=== PATIENT | female | born 1995 | race Caucasian/White ===

== ENCOUNTER 2019-02-04 21:50 | Emergency (ER) | payer MEDICAID ==
[2019-02-04] MEDS ORDERED: Doxycycline 100 MG Tab PO ONE (21:51)
[2019-02-04] MEDS ORDERED: Lidocaine 2% 20 ML MDV INFILT ONE (21:51)
--- NOTE | 2019-02-05 03:51 | ER ---
DATE SEEN: 02/04/2019 CHIEF COMPLAINT: A boil. HISTORY OF PRESENT ILLNESS: This is a 23-year-old who presents with a boil in the perineum. It has been there for a year, but on and off, it flares up. Moderate pain when she sits down. No fever. ALLERGIES: Amoxicillin and sulfa. REVIEW OF SYSTEMS: All other systems were negative. PHYSICAL EXAMINATION: VITAL SIGNS: Blood pressure and temperature within normal limits. RECTAL: Reveals a lesion above the anal opening that is tender, fluctuant, and fixed. IMPRESSION: Furuncle. PLAN: I discussed incision and drainage. She accepted the risks and benefits. I prepped the area with a trombone slide assembler and injected about 1 mL of 2% lidocaine. I made a small incision about a centimeter in size and expressed blood and some cheesy material. I recommended sitz baths, and a prescription for 100 mg of doxycycline twice a day was dispensed. She is advised to return p.r.n. /[id number] SARAH/PIPPA
== END 2019-02-04 22:40 | disposition home or self-care (01) ==
LOC: FB.ED 21:50
DX: L02.225 Furuncle of perineum (principal); Z88.1 Allergy status to other antibiotic agents; Z88.2 Allergy status to sulfonamides
CPT/HCPCS: 10060; 99282; A9270; J2001

== ENCOUNTER 2019-06-14 17:12 | Emergency (ER) | payer MEDICAID ==
[2019-06-14] MEDS ORDERED: Ibuprofen 800 MG Tab PO ONE (17:56)
[2019-06-14] MEDS ORDERED: Acetaminophen 500 MG Tab PO ONE (17:57)
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
== END 2019-06-14 19:05 | disposition home or self-care (01) ==
LOC: FB.ED 17:12
DX: S29.9XXA Unspecified injury of thorax, initial encounter (principal); Z88.1 Allergy status to other antibiotic agents; Z88.2 Allergy status to sulfonamides; Z88.8 Allergy status to other drugs, medicaments and biological substances; Y04.2XXA Assault by strike against or bumped into by another person, initial encounter
CPT/HCPCS: 71101-RT; 99283-25; A9270-GY

== ENCOUNTER 2019-09-05 23:11 | Emergency (ER) | payer MEDICAID ==
[2019-09-05] MEDS ORDERED: Ketorolac 60 MG/2 ML SDV IM ONE (23:42)
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
== END 2019-09-06 00:15 | disposition home or self-care (01) ==
LOC: FB.ED 23:11
DX: M79.89 Other specified soft tissue disorders (principal); M79.662 Pain in left lower leg; F41.9 Anxiety disorder, unspecified; F32.9 Major depressive disorder, single episode, unspecified; Z79.899 Other long term (current) drug therapy; Z88.1 Allergy status to other antibiotic agents; Z88.2 Allergy status to sulfonamides; Z87.891 Personal history of nicotine dependence; W22.8XXA Striking against or struck by other objects, initial encounter; Y93.23 Activity, snow (alpine) (downhill) skiing, snowboarding, sledding, tobogganing and snow tubing
CPT/HCPCS: 96372; 99283; J1885

== ENCOUNTER 2021-02-20 13:37 | Emergency (ER) | payer MEDICAID ==
[2021-02-20] MEDS ORDERED: LORazepam 2 MG/ML SDV IVPUSH STA (13:42)
[2021-02-20] MEDS ORDERED: Ondansetron 4 MG/2 ML SDV IVPUSH STA (13:42)
[2021-02-20] MEDS ORDERED: Sodium Chloride 0.9% 10 ML Syringe FLUSH PRN (13:42)
[2021-02-20] MEDS ORDERED: Sodium Chloride 0.9% 1,000 ML IV SCH (13:45)
[2021-02-20] MEDS ORDERED: Methadone 10 MG Tab PO STA (13:59)
[2021-02-20] MEDS ORDERED: Ketorolac 30 MG/ML SDV IVPUSH ONE (13:59)
--- NOTE | 2021-02-20 14:35 | EDM.PDOC ---
ED HPI GENERAL MEDICAL PROBLEM - General Time Seen by Provider: 02/20/21 14:00 Source of Information: Reports: Patient History Limitations: Reports: No Limitations - History of Present Illness INITIAL COMMENTS - FREE TEXT/NARRATIVE: Patient presented to the ED with law enforcement because of opioid withdrawal symptoms. She abuse fentanyl for 1 year now. She usually take 10-20 of a 30 mg tablet fentanyl daily. Her last pill intake was 8 pm last night. She started to have withdrawal symptoms of nausea,vomiting, diarrhea, pain, anxiety at 2 pm today. Generalized Pain Score (Numeric/FACES): 7 - Related Data Allergies Allergy/AdvReac Type Severity Reaction Status Date / Time amoxicillin Allergy Hives Verified 02/20/21 15:24 sulfamethoxazole Allergy Anaphylactic Verified 02/20/21 15:24 [From Bactrim] Shock trimethoprim [From Bactrim] Allergy Anaphylactic Verified 02/20/21 15:24 Shock Home Meds: Home Meds ALPRAZolam [Xanax] 2 mg PO ASDIRECTED PRN 02/20/21 [History] Past Medical History - Past Health History Medical/Surgical History: Denies Medical/Surgical History Respiratory History: Reports: None Gastrointestinal History: Reports: None Genitourinary History: Reports: None 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 Musculoskeletal History: Reports: None Neurological History: Reports: None Psychiatric History: Reports: Anxiety, Depression Endocrine/Metabolic History: Reports: None Dermatologic History: Reports: None Social & Family History - Family History Family Medical History: No Pertinent Family History - Caffeine Use Caffeine Use: Reports: Coffee Caffeine Use Comment: Drinks coffee daily ED ROS GENERAL - Review of Systems Review Of Systems: See Below Constitutional: Reports: No Symptoms HEENT: Reports: No Symptoms Respiratory: Reports: No Symptoms Cardiovascular: Reports: No Symptoms Endocrine: Reports: No Symptoms GI/Abdominal: Reports: Diarrhea, Nausea, Vomiting : Reports: No Symptoms Musculoskeletal: Reports: No Symptoms Skin: Reports: No Symptoms Neurological: Reports: No Symptoms Psychiatric: Reports: Anxiety Hematologic/Lymphatic: Reports: No Symptoms Immunologic: Reports: No Symptoms ED EXAM, GENERAL - Physical Exam Exam: See Below Exam Limited By: No Limitations General Appearance: Alert, No Apparent Distress Eye Exam: Bilateral Eye: PERRL Ears: Normal External Exam, Normal Canal Nose: Normal Inspection, Normal Mucosa, No Blood Throat/Mouth: Normal Inspection, Normal Lips, Normal Teeth Head: Atraumatic, Normocephalic Neck: Normal Inspection, Supple, Non-Tender, Full Range of Motion Respiratory/Chest: No Respiratory Distress, Lungs Clear, Normal Breath Sounds Cardiovascular: Normal Peripheral Pulses, Regular Rate, Rhythm, No Edema, No Gallop, No JVD, No Murmur, No Rub GI/Abdominal: Normal Bowel Sounds, Soft, Non-Tender, No Organomegaly, No Distention, No Abnormal Bruit Back Exam: Normal Inspection, Full Range of Motion Extremities: Normal Inspection, Normal Range of Motion, Non-Tender, No Pedal Edema, Normal Capillary Refill Neurological: Alert, Oriented, CN II-XII Intact, Normal Cognition Psychiatric: Anxious, Depressed Mood, Flat Affect Course - Vital Signs Text/Narrative:: Lab result was reviewed and discussed with patient NS 1 L bolus Zofran 4 mg IV x1 and Q4H PRN Reglan 10 mg IV Q8H Methadone 20 mg PO x1 Toradol 30 mg IV x1 Ativan 1 mg IV x1 Clonidine 0.2 mg PO x 1 Covid test-pending Last Recorded V/S: Last Vital Signs Temp 36.9 C 02/20/21 13:37 Pulse 75 02/20/21 13:37 Resp 27 H 02/20/21 13:37 BP 148/85 H 02/20/21 17:13 Pulse Ox 96 02/20/21 13:37 - Orders/Labs/Meds Orders: Active Orders 24 hr Category Date Time Status Metoclopramide [Reglan] Med 02/20/21 17:15 Active 10 mg IVPUSH Q8H Ondansetron [Zofran] Med 02/20/21 17:15 Active 4 mg IVPUSH Q4H PRN Sodium Chloride 0.9% [Normal Saline] 1,000 ml Med 02/20/21 13:45 Active IV ASDIRECTED Sodium Chloride 0.9% [Normal Saline] 2,000 ml Med 02/20/21 17:30 Active IV ASDIRECTED Sodium Chloride 0.9% [Saline Flush] Med 02/20/21 13:42 Active 10 ml FLUSH ASDIRECTED PRN Saline Lock Insert [OM.PC] Routine Oth 02/20/21 13:42 Ordered Medication Orders Sodium Chloride (Normal Saline) 1,000 mls @ 999 mls/hr IV ASDIRECTED [facility] Last Admin: 02/20/21 13:55 Dose: 999 mls/hr Documented by: REMINGTON Sodium Chloride (Normal Saline) 2,000 mls @ 125 mls/hr IV ASDIRECTED [facility] Last Admin: 02/20/21 17:30 Dose: 125 mls/hr Documented by: REMINGTON Metoclopramide HCl (Metoclopramide 10 Mg/2 Ml Sdv) 10 mg IVPUSH Q8H [facility] Last Admin: 02/20/21 17:13 Dose: 10 mg Documented by: REMINGTON Ondansetron HCl (Ondansetron 4 Mg/2 Ml Sdv) 4 mg IVPUSH Q4H PRN PRN Reason: Nausea Sodium Chloride (Sodium Chloride 0.9% 10 Ml Syringe) 10 ml FLUSH ASDIRECTED PRN PRN Reason: Keep Vein Open Labs: Laboratory Tests 02/20/21 02/20/21 02/20/21 Range/Units 13:55 13:55 13:55 WBC 9.7 (3.0-10.3) x10-3/uL RBC 4.92 (3.60-5.20) x10(6)uL Hgb 14.3 (11.4-15.5) g/dL Hct 42.4 (34.2-48.2) % MCV 86.3 (76.7-100.5) fL MCH 29.1 (23.9-33.9) pg MCHC 33.8 (31.9-34.8) g/dL RDW 13.4 (12.3-16.5) % Plt Count 257 (151-488) x10(3)uL MPV 9.4 (7.1-12.4) fL Add Manual Diff Yes Neutrophils % (Manual) 87 H (46-82) % Lymphocytes % (Manual) 11 L (13-37) % Monocytes % (Manual) 2 L (4-12) % Sodium 142 (135-145) mmol/L Potassium 4.0 (3.5-5.3) mmol/L Chloride 105 (100-110) mmol/L Carbon Dioxide 23 (21-32) mmol/L BUN 17 (7-18) mg/dL Creatinine 0.8 (0.55-1.02) mg/dL Est Cr Clr Drug Dosing TNP Estimated GFR (MDRD) > 60 (>60) BUN/Creatinine Ratio 21.3 H (9-20) Glucose 111 (80-116) mg/dL Calcium 9.5 (8.6-10.2) mg/dL Total Bilirubin 0.7 (0.1-1.3) mg/dL AST 12 (5-25) IU/L ALT 20 (12-36) U/L Alkaline Phosphatase 66 (56-112) IU/L Total Protein 7.7 (6.0-8.0) g/dL Albumin 4.3 (3.5-5.2) g/dL Globulin 3.4 g/dL Albumin/Globulin Ratio 1.3 Urine Opiates Screen (NEGATIVE) Ur Buprenorphine Scrn (NEGATIVE) Ur Oxycodone Screen (NEGATIVE) Urine Methadone Screen (NEGATIVE) Ur Propoxyphene Screen (NEGATIVE) Ur Barbiturates Screen (NEGATIVE) Ur Tricyclics Screen (NEGATIVE) Ur Phencyclidine Scrn (NEGATIVE) Ur Amphetamine Screen (NEGATIVE) U Methamphetamines Scrn (NEGATIVE) U Benzodiazepines Scrn (NEGATIVE) U Cocaine Metab Screen (NEGATIVE) U Marijuana (THC) Screen (NEGATIVE) Ethyl Alcohol < 0.03 (<0.03) % SARS-CoV-2 RNA ([facility]YLOR) (NEGATIVE) 02/20/21 02/20/21 Range/Units 15:20 15:20 WBC (3.0-10.3) x10-3/uL RBC (3.60-5.20) x10(6)uL Hgb (11.4-15.5) g/dL Hct (34.2-48.2) % MCV (76.7-100.5) fL MCH (23.9-33.9) pg MCHC (31.9-34.8) g/dL RDW (12.3-16.5) % Plt Count (151-488) x10(3)uL MPV (7.1-12.4) fL Add Manual Diff Neutrophils % (Manual) (46-82) % Lymphocytes % (Manual) (13-37) % Monocytes % (Manual) (4-12) % Sodium (135-145) mmol/L Potassium (3.5-5.3) mmol/L Chloride (100-110) mmol/L Carbon Dioxide (21-32) mmol/L BUN (7-18) mg/dL Creatinine (0.55-1.02) mg/dL Est Cr Clr Drug Dosing Estimated GFR (MDRD) (>60) BUN/Creatinine Ratio (9-20) Glucose (80-116) mg/dL Calcium (8.6-10.2) mg/dL Total Bilirubin (0.1-1.3) mg/dL AST (5-25) IU/L ALT (12-36) U/L Alkaline Phosphatase (56-112) IU/L Total Protein (6.0-8.0) g/dL Albumin (3.5-5.2) g/dL Globulin g/dL Albumin/Globulin Ratio Urine Opiates Screen Negative (NEGATIVE) Ur Buprenorphine Scrn Negative (NEGATIVE) Ur Oxycodone Screen Negative (NEGATIVE) Urine Methadone Screen Negative (NEGATIVE) Ur Propoxyphene Screen Negative (NEGATIVE) Ur Barbiturates Screen Negative (NEGATIVE) Ur Tricyclics Screen Negative (NEGATIVE) Ur Phencyclidine Scrn Negative (NEGATIVE) Ur Amphetamine Screen Negative (NEGATIVE) U Methamphetamines Scrn Negative (NEGATIVE) U Benzodiazepines Scrn Negative (NEGATIVE) U Cocaine Metab Screen Negative (NEGATIVE) U Marijuana (THC) Screen Positive H (NEGATIVE) Ethyl Alcohol (<0.03) % SARS-CoV-2 RNA (TA[place]OR) Negative (NEGATIVE) Meds: Medications Generic Name Dose Route Start Last Admin Trade Name Freq PRN Reason Stop Dose Admin Sodium Chloride 1,000 mls @ 999 mls/hr 02/20/21 13:45 02/20/21 13:55 Normal Saline IV 999 mls/hr ASDIRECTED ABHIJIT Administration Sodium Chloride 2,000 mls @ 125 mls/hr 02/20/21 17:30 02/20/21 17:30 Normal Saline IV 125 mls/hr ASDIRECTED ABHIJIT Administration Metoclopramide HCl 10 mg 02/20/21 17:15 02/20/21 17:13 Metoclopramide 10 Mg/2 Ml Sdv IVPUSH 10 mg Q8H ABHIJIT Administration Ondansetron HCl 4 mg 02/20/21 17:15 Ondansetron 4 Mg/2 Ml Sdv IVPUSH Q4H PRN Nausea Sodium Chloride 10 ml 02/20/21 13:42 Sodium Chloride 0.9% 10 Ml Syringe FLUSH ASDIRECTED PRN Keep Vein Open Discontinued Medications Generic Name Dose Route Start Last Admin Trade Name Freq PRN Reason Stop Dose Admin Clonidine HCl 0.2 mg 02/20/21 17:07 02/20/21 17:13 Clonidine 0.1 Mg Tab PO 02/20/21 17:08 0.2 mg NOW STA Administration Hydroxyzine HCl 100 mg 02/20/21 15:57 02/20/21 16:03 Hydroxyzine Hcl 50 Mg/Ml Sdv IM 02/20/21 15:58 100 mg NOW STA Administration Ketorolac Tromethamine 30 mg 02/20/21 13:59 02/20/21 14:20 Ketorolac 30 Mg/Ml Sdv IVPUSH 02/20/21 14:00 30 mg ONETIME ONE Administration Lorazepam 1 mg 02/20/21 13:42 02/20/21 14:21 Lorazepam 2 Mg/Ml Sdv IVPUSH 02/20/21 13:43 1 mg NOW STA Administration Methadone HCl 20 mg 02/20/21 13:59 02/20/21 14:20 Methadone 10 Mg Tab PO 02/20/21 14:00 20 mg NOW STA Administration Nicotine 21 mg 02/20/21 17:02 02/20/21 17:17 Nicotine 21 Mg/24 Hr Patch TRDERM 02/20/21 17:03 21 mg ONETIME ONE Administration Ondansetron HCl 4 mg 02/20/21 13:42 02/20/21 14:20 Ondansetron 4 Mg/2 Ml Sdv IVPUSH 02/20/21 13:43 4 mg NOW STA Administration Ondansetron HCl 4 mg 02/20/21 15:50 02/20/21 16:02 Ondansetron 4 Mg/2 Ml Sdv IVPUSH 02/20/21 15:51 4 mg ONETIME ONE Administration Ondansetron HCl 4 mg 02/20/21 17:15 02/20/21 17:14 Ondansetron 4 Mg/2 Ml Sdv IVPUSH 4 mg Q4H ABHIJIT Administration Departure - Departure Time of Disposition: 15:00 Disposition: DC/Tfer to Inpt Rehab Fac 62 Condition: Good Clinical Impression: Opioid withdrawal, Opioid abuse - Discharge Information Instructions: Chemical Dependency Referrals: PCP,None [Primary Care Provider] - Sepsis Event Note (ED) - Focused Exam Vital Signs: Vital Signs Temp Pulse Resp BP BP Pulse Ox 02/20/21 17:13 148/85 H 02/20/21 13:37 36.9 C 75 27 H 152/76 H 96 - My Orders Last 24 Hours: My Active Orders 02/20/21 13:42 Sodium Chloride 0.9% [Saline Flush] 10 ml FLUSH ASDIRECTED PRN Saline Lock Insert [OM.PC] Routine 02/20/21 13:45 Sodium Chloride 0.9% [Normal Saline] 1,000 ml IV ASDIRECTED 02/20/21 17:15 Metoclopramide [Reglan] 10 mg IVPUSH Q8H Ondansetron [Zofran] 4 mg IVPUSH Q4H PRN 02/20/21 17:30 Sodium Chloride 0.9% [Normal Saline] 2,000 ml IV ASDIRECTED - Assessment/Plan Last 24 Hours: My Active Orders 02/20/21 13:42 Sodium Chloride 0.9% [Saline Flush] 10 ml FLUSH ASDIRECTED PRN Saline Lock Insert [OM.PC] Routine 02/20/21 13:45 Sodium Chloride 0.9% [Normal Saline] 1,000 ml IV ASDIRECTED 02/20/21 17:15 Metoclopramide [Reglan] 10 mg IVPUSH Q8H Ondansetron [Zofran] 4 mg IVPUSH Q4H PRN 02/20/21 17:30 Sodium Chloride 0.9% [Normal Saline] 2,000 ml IV ASDIRECTED
[2021-02-20] MEDS ORDERED: Ondansetron 4 MG/2 ML SDV IVPUSH ONE (15:50)
[2021-02-20] MEDS ORDERED: hydrOXYzine HCl 50 MG/ML SDV IM STA (15:57)
[2021-02-20] MEDS ORDERED: Nicotine 21 MG/24 Hr Patch TRDERM ONE (17:02)
[2021-02-20] MEDS ORDERED: cloNIDine 0.1 MG Tab PO STA (17:07)
[2021-02-20] MEDS: Metoclopramide 10 MG/2 ML SDV IVPUSH SCH (17:13)
[2021-02-20] MEDS ORDERED: Ondansetron 4 MG/2 ML SDV IVPUSH SCH (17:15)
[2021-02-20] MEDS: Sodium Chloride 0.9% 2,000 ML IV SCH (17:30)
[2021-02-20] MEDS: Ondansetron 4 MG/2 ML SDV IVPUSH PRN (21:13)
[2021-02-21] MEDS: Sodium Chloride 0.9% 2,000 ML IV SCH (00:12)
[2021-02-21] MEDS: Metoclopramide 10 MG/2 ML SDV IVPUSH SCH (01:04)
[2021-02-21] MEDS ORDERED: LORazepam 2 MG/ML SDV IVPUSH ONE (01:06)
[2021-02-21] MEDS ORDERED: OLANZapine 5 MG Tab PO ONE (01:06)
[2021-02-21] MEDS: Ondansetron 4 MG/2 ML SDV IVPUSH PRN ×2 (02:55→07:24)
[2021-02-21] MEDS ORDERED: Methadone 10 MG Tab PO STA (06:08)
== END 2021-02-21 10:23 | disposition left against medical advice (07) ==
LOC: FB.ED 13:37
DX: F11.13 Opioid abuse with withdrawal (principal); Z88.0 Allergy status to penicillin; Z88.1 Allergy status to other antibiotic agents; Z20.822 Contact with and (suspected) exposure to COVID-19
CPT/HCPCS: 36415; 80053; 80307; 85025; 87635; 96372; 96374; 96375; 96376; 99284; A9270; J1885; J2060; J2405; J2765; J3410; J7030; U0002